=== PATIENT | female | born 1985 | race Caucasian/White ===

== ENCOUNTER → 2016-10-04 | Outpatient (CLI) | payer OTHER ==
[~2016-10-04] VITALS: Ht 162.6 cm; Wt 111.5 kg
[~2016-10-04] MED LIST: MAGN400T6 PO
[2016-10-04 16:11] VITALS: BP 106/73; PULSE 69; Ht 162.6 cm; Wt 111.5 kg
== END | disposition home or self-care (01) ==
LOC: C.NEUR 14:29
PROVIDERS: ATTEND Internal Medicine Pulmonary Disease
DX: R06.83 Snoring (principal); R53.83 Other fatigue

== ENCOUNTER → 2016-11-19 | Outpatient (CLI) | payer OTHER ==
--- NOTE | 2016-11-20 06:41 | PAP/PSG TECHNICIAN REPORT ---
[facility] Band Lining Bander Polysomnogram Report Study name: None Report date: 11/20/2016 Study date: 11/19/2016 Referring Physician: DR. LOZANO Name: AIDA BIRMINGHAM Interpreting Physician: Max Lozano M.D. Date of : 1985 Band Lining Bander: [place] De Guzman RPS. Sex: Female Age: 31 Study Type: PSG Weight: 245.8 lbs 15 in Height: 31 years, Height 5' 4" Neck Circum: BMI: 42.19 Medications: NONE REPORTED Patient History 31 yr-old female here for a baseline study. She has a history of loud snoring, daytime sleepiness, and restless sleep. her Ovalo scale is 10. The test was started on room air. ETCO2 testing was not utilized during this study. Room 3 Parameters Monitored NPSG: E1-M2, E2-M1, Fp1-M2, Fp2-M1, F3-M2, F4-M2, F4-M1, C3-M2, C4-M2, C4-M1, O1-M2, O2-M2, O2-M1, T3-M2, T4-M1, P3-M2, P4-M1, CHIN1, CHIN2, HR, EKG, Legs, PFLOW, SNOR, FLOW, CFLOW, Tidal Volume, THOR, ABDO, SpO2, PLTH, CPRESS, ETCO2 Wave, ETCO2, pH Sleep Architecture Sleep Stages Time at Lights Off 10:05:32 PM STAGES Time (min.) TST (%) Time at Lights On 5:40:02 AM Wake 62.5 -- Total Recording Time (TRT) 454.50 min. N1 42.0 11 Total Sleep Period (TSP) 445.0 min. N2 255.0 65 Total Sleep Time (TST) 392.0min. N3 45.0 11 Awake Time 62.5 min. REM 50.0 13 Wake after Sleep Onset 53.0 min. Sleep Efficiency (SE) 86 % Sleep Onset Latency (GRETCHEN) 9.5 min. Number of Stage 1 Shifts None Awakenings 24 Stage Changes 113 Number of REM periods 5 REM 50.0 13 REM Latency 161.0 min. NREM 342.0 87 Body Position Analysis Supine Right Left Side Prone Vertical Total Sleep Time (min.) 330.0 102.3 0.0 102.25 0.0 0.0 Total Sleep Time (%) 74% 26% 0% 26 0% N/A% Total Sleep Time REM (min.) 50.0 0.0 0.0 None 0.0 0.0 Total Sleep Time NREM (min.) 239.7 102.3 0.0 None 0.0 0.0 Intermittent Wake (min.) 40.3 22.2 0.0 None 0.0 0.0 Total Sleep Period (%) 74% None None None None None Arousals Myoclonus (PLM) * Events Count Index Events Count Index Spontaneous 40 6 Events Awake (PLMW) 68 65.3 Respiratory 8 1.4 Events Asleep w/ Arousal (PLMA) 15 2.3 PLM 15 2 Events Asleep w/o Arousal (PLMS) 55 8.4 Snoring 8 1 Total Asleep 70 10.7 Total 71 11 Total 138 18 Respiratory Analysis * CA OA MA CH H RERA Total Count 0 0 0 0 57 2 57 Index 0.0 0.0 0.0 0 8.7 0 9.0 Mean Duration 0.0 0.0 0.0 0.00 17.3 15.6 17.3 Longest Duration 0.0 0.0 0.0 0.00 0.0 18.0 39.0 Respiratory Event Summary Total Supine ~Supine Right Left Prone REM NREM Apneas Count 0 0 0 0 N/A N/A 0 0 Index 0.0 0 0 0.0 N/A N/A 0 0 Hypopneas (4% Desat) Count 57 55 2 2 N/A N/A 36 21 Index 8.7 11.4 1 1.2 N/A N/A 43.2 3.7 Apneas & All Hypopneas Count 57 55 2 2 N/A N/A 36 21 Index 8.7 11 1 1 N/A N/A 43.2 3.7 Respiratory Events (Accounts Payable Technician+All Hyp+RERA) Count 57 57 2 2 N/A N/A 36 21 Index 9.0 12 1 1.2 N/A N/A 44.4 3.9 Respiratory Related Arousal Count 8 57 1 1 N/A N/A 3 6 Index 1.4 2 1 1 N/A N/A 4 1 Snoring Analysis Supine Right Left Prone REM NREM Total Snore duration 14.9 min Snores count 564 272 N/A N/A 120 716 836 Snore mean duration 1.1 Sec Snores index 117 160 N/A N/A 144.0 125.6 128.0 TST with snoring (%) 3.8% Desaturation Event Summary: Minimum %SpO2 Event Count Mean/Min/Max Duration(sec.) Desaturation Index % Time In Bed > 90 87 22.8 / 6.3 / 60.0 12.5 93.2 86 - 90 5 13.1 / 6.8 / 23.3 10.2 6.6 81 - 85 0 N/A 0.0 0.2 76 - 80 0 N/A 0.0 0.0 71 - 75 0 N/A 0.0 0.0 66 - 70 0 N/A 0.0 0.0 61 - 65 0 N/A 0.0 0.0 56 - 60 0 N/A 0.0 0.0 51 - 55 0 N/A 0.0 0.0 < 50 0 N/A 0.0 0.0 Total REM NREM Awake <50% 0.0 min. 0.0 min. 0.0 min. 0.0 min. 51 - 60% 0.0 min. 0.0 min. 0.0 min. 0.0 min. 61 - 70% 0.0 min. 0.0 min. 0.0 min. 0.0 min. 71 - 80% 0.0 min. 0.0 min. 0.0 min. 0.0 min. 81 - 90% 30.2 min. 9.6 min. 20.2 min. 0.3 min. 91 - 100% 416.2 min. 40.4 min. 321.8 min. 54.1 min. Average 93 92 93 94 Minimum SpO2 81 81 86 82 Desaturation Event Index 11.6 46.8 6.8 11.5 # Desat. Events below 89% 12 10 2 N/A Time(%) with Saturation below 89% 0.8 0.7 0.0 0.0 Time(min.) with Saturation below 89% 3.7 3.3 0.2 0.2 Time (mins) REM (mins) NREM (mins) % of TST SpO2 Below 90% 35 24 N11 1.6 SpO2 Below 88% 4 0 0 1 Heart Rate Analysis Min (bpm) Max (bpm) Average (bpm) Awake 60 104 79 NREM 58 100 74 REM 60 100 75 Overall 58 100 74 Supplemental O2 Values Minimum O2 level: None Value Start Time End Time Band Lining Bander Comments Ms. Birmingham slept in the right and supine. No cardiac arrhythmias were noted. Some PLMs were noted. No bruxism noted. Snoring was noted and scored as a 2-3 on a scale of 1 through 5. (0=no snoring, 5=snoring loud enough to be heard through a closed door or down the [address]). She awoke to use the restroom one time during the night. Ms. Birmingham stated that she slept ok. The final report will be interpreted and signed by a sleep physician. The completed physician report will then be placed in the patient medical record. Therapy (cm H2O) 0 TIB (min.) 454.5 TST (min.) 392.0 Sleep Onset (min.) 9.5 REM Onset From Sleep (min.) 161.0 Sleep Efficiency % 86 Wakefulness (%) 14 Wakefulness (min.) 62.5 NREM 1 (%) 11 NREM 1 (min.) 42.0 NREM 2 (%) 65 NREM 2 (min.) 255.0 NREM 3 (%) 11 NREM 3 (min.) 45.0 REM (%) 13 REM (min.) 50.0 # Arousals 71 Arousal Index 11 # Snore 836 Snore Index 128.0 AHI 8.7 AHI Supine 11 AHI Non-Supine 1 NREM AHI 3.7 REM AHI 43.2 RDI 9.0 # Obstructive Apnea 0 # Central Apnea 0 # Mixed Apnea 0 # Hypopneas 57 RERAs 2 Total Respiratory Events 59 Time Below SpO2 89% (min.) 3.5 Mean NREM SpO2 (%) 93 Mean REM SpO2 (%) 92 Mean Sleep SpO2 (%) 93 Min NREM SpO2 (%) 86 Min REM SpO2 (%) 81 Position Supine (min.) 330.0 Position Non-supine (min.) 102.3 LM Index Sleep 10.7 LM Index NREM 11.4 LM Index REM 6.0 Mean Heart Rate (bpm) 74 Min Heart Rate (bpm) 58
--- NOTE | 2016-11-23 01:33 | POLYSOMNOGRAPH REPORT ---
CLINICAL DATA: A 31-year-old female with BMI of 42.[address] Deb Amezcua and myself for a sleep study. She does have snoring, fatigue, and a crowded airway. Her Bude sleep score was 10/24. SLEEP ARCHITECTURE: Total sleep period was 445 minutes. Total sleep time was 392 minutes divided between 342 minutes of non-REM sleep and 50 minutes of REM sleep. Sleep onset latency was 9.5 minutes. REM latency was 161 minutes. Sleep efficiency was 86%. Wake after sleep onset was 53 minutes. Sleep consisted of stage N1 11%, N2 65%, N3 11%, and REM 13%. AROUSAL DATA: Seventy one arousals were recorded for an index of 11 per hour. PERIODIC LIMB MOVEMENTS DATA: Seventy limb movements during sleep were noted for an index of 10.7 per hour with arousal index of 2.3 per hour. RESPIRATORY DATA: Mild sleep apnea was documented. The AHI was 8.7. The RDI was 9. There were 57 hypopneic episodes with a mean duration of which was 17.3 seconds. There were 2 RERAs. The longest RERA was 18 seconds. OXIMETRY DATA: Mild nocturnal hypoxemia was seen. Oxygen antonietta was 81% during REM. The mean saturation was 92% time below 88% was 4 minutes. ELECTROCARDIOGRAM: Heart rates ranged from 58-100 beats per minute. No arrhythmias were noted. 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 Snoring was moderate, rated 2-3 on a scale of 1-5. IMPRESSION: Mild sleep apnea/hypopnea with an apnea-hypopnea index of 8.7. RECOMMENDATIONS: The patient may benefit from weight loss, use of an oral appliance, or possibly positional therapy. The majority of her apneic episodes occurred while supine. Clinical correlation is needed. [facility]
== END | disposition home or self-care (01) ==
LOC: C.NEUR 21:00
PROVIDERS: ATTEND Internal Medicine Pulmonary Disease
DX: R53.83 Other fatigue (principal); R06.83 Snoring

== ENCOUNTER → 2016-12-03 | Outpatient (CLI) | payer OTHER ==
[~2016-12-03] VITALS: Ht 165.1 cm; Wt 111.7 kg
[2016-12-03 15:15] VITALS: BP 102/70; PULSE 80; Ht 165.1 cm; Wt 111.7 kg
== END | disposition home or self-care (01) ==
LOC: C.NEUR 14:00
PROVIDERS: ATTEND Internal Medicine Pulmonary Disease
DX: G47.30 Sleep apnea, unspecified (principal); R06.83 Snoring; R53.83 Other fatigue; J30.9 Allergic rhinitis, unspecified